=== PATIENT | female | born 1940 | race Caucasian/White ===

== ENCOUNTER 2019-07-03 09:53 | Inpatient (IN) | payer OTHER ==
[~2019-07-03] VITALS: Ht 165.1 cm; Wt 72.6 kg
[2019-07-03 10:05] VITALS: Ht 165.1 cm; Wt 72.6 kg
--- NOTE | 2019-07-03 10:45 | NUR ---
PT PRESENTS TO ED AAOX4 [place] SPEAKING C/O DIZZINESS, REECE WITH EPIGASTRIC PAIN AND REPORTS 4 EPISODES OF VOMITING AT HOME THIS AM. PT HAS HX OF VERTIGO, AND HTN WHOM SHE DOESN'T MONITOR OFTEN. PT HAS NO NEURO DEFICITS HAS EYES CLOSED DUE TO DIZZINESS. PT REPORTS FEELING SOB HOWEVER NO RESP DISTRESS NOTED. O2 SAT 100% VIA N/C. PT ON FULL CM SINUS RHYTHM DENIES CP, ABD SOFT NON DISTENDED DENIES URINARY SYMPTOMS. SKIN WARM DRY INTACT. PT GOWNED IN POSITION OF COMFORT.
[2019-07-03 10:57] LABS: BASOPHIL % 0.8 % (0-2); PLATELET COUNT 290 x10^3mcL (130-400); RED CELL DISTRIBUTION WIDTH 12.7 % (11.5-14.5)
--- NOTE | 2019-07-03 11:00 | NUR ---
PT TO CT VIA [facility]
[2019-07-03 11:18] LABS: CALCIUM 9.7 mg/dL (8.5-10.1); CARBON DIOXIDE 27.5 mmol/L (21-32); CHLORIDE SERUM 95 mmol/L (98-107); CREATININE SERUM 0.9 mg/dL (0.6-1.0); GLUCOSE SERUM 120 mg/dL (74-106); POTASSIUM SERUM 3.6 mmol/L (3.5-5.1); SODIUM SERUM 134 mmol/L (136-145)
[2019-07-03 11:22] LABS: ALBUMIN 3.8 g/dL (3.4-5.0); ALKALINE PHOSPHATASE 70 U/L (46-116); ALT/SGPT 25 U/L (14-59); AST/SGOT 19 U/L (15-37); BILIRUBIN TOTAL 0.8 mg/dL (0.20-1.00); CHOLESTEROL 164 mg/dL (<200); CHOLESTEROL/HDL RATIO 3.2; HDL CHOLESTEROL 51 mg/dL (40-60); LIPASE 182 IU/L (73-393); TOTAL PROTEIN, SERUM 8.2 g/dL (6.4-8.2); TRIGLYCERIDES 112 mg/dL (<150)
[2019-07-03 11:24] LABS: T3 TOTAL 1.12 ng/mL
--- NOTE | 2019-07-03 11:25 | NUR ---
PT WITH URGE TO VOID BED PAIN APPLIED UNDER PTS BUTTOCKS. PTS DAUGHTER AT BEDSIDE
--- NOTE | 2019-07-03 11:28 | NUR ---
PT MEDICATED PER MD ORDERS SEE EMAR.
--- NOTE | 2019-07-03 11:31 | NUR ---
URINE COLLECTED AND DIPPED.
--- NOTE | 2019-07-03 13:14 | NUR ---
PT MEDICATED PER MD ORDERS SEE EMAR. PT RESTING COMFORTABLY DAUGHTER AT BEDSIDE WILL CONTINUE TO MONITOR
[2019-07-03 13:46] LABS: FREE T4 1.67 ng/dL (0.76-1.46)
[2019-07-03 13:50] LABS: FREE THYROXINE INDEX 4.7 ug/dL (1.4-4.5); T4(THYROXINE) 13.5 ug/dL (4.7-13.3)
--- NOTE | 2019-07-03 14:30 | NUR ---
PT ROAD TESTED PER MD ORDERS PT UNSTEADY REPORTING INCREASED DIZZINESS DR NICE MADE AWARE
[2019-07-03] MEDS ORDERED: CEVIMELINE HCL30 MG PO (16:28)
[2019-07-03] MEDS ORDERED: ASPIR 8181 MG PO (16:29)
[2019-07-03] MEDS ORDERED: CARVEDILOL25 M1 PO (16:30)
[2019-07-03] MEDS ORDERED: OMEPRAZOLE20 M4 PO (16:31)
[2019-07-03] MEDS ORDERED: LEVOTHYROXIN0.075 M2 PO (16:32)
[2019-07-03] MEDS ORDERED: LIPI20 PO (16:32)
[2019-07-03] MEDS ORDERED: HYZAAR1 TAB PO (16:33)
[2019-07-03] MEDS ORDERED: MECLIZINE HCL12.5 MG PO (16:34)
[2019-07-03] MEDS ORDERED: LORAZEPAM1 MG PO (16:36)
--- NOTE | 2019-07-03 17:09 | NUR ---
REPORT GIVEN TO AMY IN TELE FLOOR WHO WILL RESUME CARE OF PT.
--- NOTE | 2019-07-03 17:20 | NUR ---
RECEIVED PT FROM ED VIA [place], CAME IN DUE TO WEAKNESS, DIZZINESS AND HEADACHE. AAOX4. C/O 8/10 HEADACHE AND MILD DIZZINESS. ABLE TO FOLLOW COMMANDS. NO SOB NOTED. LUNG SOUNDS CTA, O2 SAT=96%, RA. DENIES CHEST PAIN/ PRESSURE, NSR ON THE MONITOR. DENIES ABDOMINAL DISCOMFORT. BOWEL SOUNDS ACTIVE. VOIDS. GENERALIZED WEAKNESS. IV SITE ON THE RAC IS PATENT AND INTACT. SIDE RAILS UPX2. CALL LIGHT ON REACH. DAUGHTER AT BEDSIDE. PRIMARY NURSE AMY AT BEDSIDE FOR CONTINUITY OF CARE
--- NOTE | 2019-07-03 17:30 | NUR ---
PT TRANSPORTED TO TELE FLOOR VIA [place] ON PORTABLE CM NO DISTRESS BY GLENN VAUGHN AND BLAYNE EMT. AMY VAUGHN RESUMED CARE OF PT.
[2019-07-03 17:35] VITALS: BP 180/62
[2019-07-03 18:13] VITALS: BP 155/63
--- NOTE | 2019-07-03 18:28 | NUR ---
PT C/O REECE /, MEDICATED PER EMAR
--- NOTE | 2019-07-03 18:36 | NUR ---
NO ACUTE CHANGES AT THIS TIME, NO ACUTE RESP DISTRESS OR SOB NOTED, US TECH AT BEDSIDE, DAUGHTER AT BEDSIDE. DR. BARAJAS MADE AWARE OF PT HOME MEDICATION FOR ANXIETY. IV TO THE RAC INTACT AND PATENT INFUSING AT 70ML/HR/ TOLERATING WELL. WILL ENDORSE TO INCOMING RN.
[2019-07-03 19:51] VITALS: BP 150/55
--- NOTE | 2019-07-03 20:00 | NUR ---
RECEIVED PT IN BED, RESTING QUIETLY. A/O X4, HEBREW SPEAKING, ABLE TO VERBALIZE NEEDS. DENIES HEADACHE/DIZZINESS. RESP. EVEN AND UNLABORED. ON ROOM AIR, NO ACUTE DISTRESS NOTED. SR ON THE MONITOR, DENIES CP OR ANY DISCOMFORT AT THIS TIME. AFEBRILE AND VITAL SIGNS STABLE. IVF,NS AT 10ML/HR, INTACT AND INFUISNG VIA RAC, SITE CLEAR.ABLE TO MOVE ALL EXTS. ASSISTED WITH HS CARE. CALL LIGHT WITHIN REACH. WILL CONTINUE TO MONITOR.
[2019-07-03 21:09] LABS: microscopic required? NO
[2019-07-03 21:13] LABS: urine erythrocyte NEGATIVE (NEGATIVE)
[2019-07-03 21:22] LABS: AMPHETAMINE QUAL UR NONE DETECTED (See below)
--- NOTE | 2019-07-04 00:25 | NUR ---
NO COMPLAINTS NOTED AT THIS TIME. RESTING QUIETLY IN BED WITH EYES CLOSED, APPEARS ASLEEP, EASILY AROUSABLE.RESP.EVEN AND UNLABORED. NO ACUTE DISTRESS NOTED. CALL LIGHT WITHIN REACH. WILL CONTINUE TO MONITOR.
[2019-07-04 04:59] VITALS: BP 128/52
--- NOTE | 2019-07-04 06:16 | NUR ---
SLEPT WELL. NO COMPLAINTS NOTED. DENIES HEADACHE/DIZZINESS. RESP. EVEN AND UNLABORED. NO ACUTE DISTRESS NOTED. AFEBRILE AND VITAL SIGNS STABLE. DUE MEDS GIVEN ORDERED, BUSTER. WELL. SR ON THE MONITOR, DENIES CP OR PRESSURE. IVF INTACT AND INFUSING WELL, SITE CLEAR. KEPT COMFORTABLE. VOIDING FREELY VIA BEDPAN. CALL LIGHT WITHIN REACH. WILL CONTINUE TO MONITOR.
[2019-07-04 06:43] LABS: BASOPHIL % 0.8 % (0-2); PLATELET COUNT 266 x10^3mcL (130-400); RED CELL DISTRIBUTION WIDTH 13.2 % (11.5-14.5)
[2019-07-04 06:49] LABS: CALCIUM 8.7 mg/dL (8.5-10.1); CARBON DIOXIDE 26.3 mmol/L (21-32); CHLORIDE SERUM 102 mmol/L (98-107); CREATININE SERUM 0.9 mg/dL (0.6-1.0); GLUCOSE SERUM 86 mg/dL (74-106); SODIUM SERUM 140 mmol/L (136-145)
--- NOTE | 2019-07-04 07:00 | NUR ---
RECEIVED REPORT FROM KALYAN RN AT BEDSIDE, PT IN BED IN NO ACUTE DISTRESS
--- NOTE | 2019-07-04 07:30 | NUR ---
PT RESTING IN BED, IN NO ACUTE DISTRESS, VERBAL, ABLE TO MAKE NEEDS KNOWN, CALM AND COOPERATIVE AT THIS TIME, CLEAR LIQUID DIET, PERRLA, NO REDNESS/DRAINAGE, NO FACIAL DROOP/SLURRED SPEECH, RESP EVEN AND NONLABORED, RA, NO SOB/COUGH, LUNG CTA, CHEST RISE SYMMETRICALLY, TELE #1, NSR, HR-81, DENIED CP/PALPITATION, DENIED N/V/D, DENIED REECE/PAIN, ABD ROUND AND NONTENDER TO TOUCH, BS ACTIVE, X 4, EQUAL HAND OXYHYDROGEN WELDER, PALP PULSES, CAP REFILL < 2S, AMBULATORY, CONTINENT, BSC, FALL RISK PROTOCOL, SKIN C/D/W, SEE SKIN ASSESSMENT, IV PATENT AND INFUSING WELL, DRESSING CDI, ALL NEEDS ADDRESSED AT THIS TIME, SAFETY PROTOCOL FOLLOWED, CONTINUE TO MONITOR
[2019-07-04 08:06] VITALS: BP 149/57
--- NOTE | 2019-07-04 08:16 | NUR ---
PT NPO AT THIS TIME D/T POSSIBLE PROCEDURE PER CHARGE NURSE ZEV, PT MADE AWARE, ASSISTED TO BSC, VOID X 1, ASSISTED BACK TO BED, RESTING, IN NO ACUTE DISTRESS, [facility] TO [facility]
--- NOTE | 2019-07-04 08:34 | NUR ---
PT REPROTED REECE, 10/15, LOCAL, MEDICATED PER PRN ORDER VIA EMAR, TOLERATED WELL, PT RESTING IN BED, EDUCATED PT R/T MEDs, ASE AND MONITOR, VERBALLY UNDERSTANDING, CONTINUE TO MONITOR
--- NOTE | 2019-07-04 09:27 | NUR ---
AM MEDs GIVEN PER MD ORDER VIA EMAR, TOLERATED WELL, NO ASE NOTED AT THIS TIME, EDUCATED PT R/T MED, ASE AND MONITOR, UNABLE TO ASSESS UNDERSTANDING AT THIS TIME, WILL CONTINUE TO EDUCATE PT THROUGH OUT SHIFT, SAFETY PROTOCOL FOLLOWED, CONTINUE TO MONITOR
[2019-07-04 13:00] VITALS: BP 130/61
--- NOTE | 2019-07-04 13:50 | NUR ---
PT REPORTED PAIN TO [facility] IV, FLUSHING WELL, PT REQUEST TO HAVE IV AT OTHER LOCATION D/T DISCOMFROT AT [facility] LOCATION, NEW IV STARTED TO (L) WRIST, 22G, PATENT AND FLUSING WELL, HEPLOCKED IV TO RAC, PT RESTING IN BED IN NO ACUTE DISTRESS, ASSISTED TO BSC, VOID X 1, BACK TO BED, TOLERATED LUNCH WELL, DENIED N/V/DIZZINESS, CONTINUE TO MONITOR
--- NOTE | 2019-07-04 15:37 | NUR ---
VOID X 1, BM X 1, ASSISTED BACK TO BED, PT RESTING IN BED IN NO ACUTE DISTRESS
[2019-07-04 17:03] VITALS: BP 143/71
--- NOTE | 2019-07-04 17:58 | NUR ---
PT RESTING IN BED, TOLERATED DINNER WELL, DAUGHTER AT BEDSIDE, REPORTED REECE, 3, MEDICATED PER MD PRN ORDER VIA EMAR, TOLERATED WELL, EDUCATED R/T MED, ASE AND MONITOR, VERBALLY UNDERSTANDING, IV PATENT AND INFUSIGN WELL, DRESSING CDI, ALL NEEDS ADDRESSED AT THIS TIME, SAFETY PROTOCOL FOLLOWED, WILL ENDORSE TO ONCOMING RN
[2019-07-04 19:59] VITALS: BP 144/64
--- NOTE | 2019-07-04 20:02 | NUR ---
PATIENT RECEIVED IN BED AWAKE,ALERT AND ORIENTED X4 DURING BEDSIDE HANDS OFF AND INTRODUCTION, DAUGHTER AT BEDSIDE, HELPING INTERPRET SINCE PATIENT ONLY SPEAKS SYRIAC. PATIENT VERBALIZED STILL EXPERIENCING DIZZINESS OFF AND ON, WAS MEDICATED EARLIER WITH ANTIVERT AND PATIENT STATED HELPING. BREATHING EVEN AND UNLABORED BS CLEAR, FOUND ON ROOM AIR SAT 98%.DENIED CHEST PAINS, HR=58BPM, TELE#1 , RHYTHM REGULAR. IV SITE TO LEFT WRIST PATENT AN INTACT, HEPLOCK TO RAC INTACT TAPE SECURED AND CAP LOCK. PATIENT INFORMED ABPUT SAFETY/FALL PREACUTIONS AND ALSO POC THIS SHIFT. CALL LIGHT PLACED IN REACH . AMBULATORY WITH STEADY GAIT, ADVICED TO CALL NURSE WHEN NEEDS ARISES, NEEDS ANTICIPATED. WILL CONTINUE TO MONITOR.
--- NOTE | 2019-07-04 21:17 | NUR ---
SCHEDULED MEDS ADMINISTERED PATIENT INFORMED OF EACH MEDS ACTIONS AND PURPOSES PRIOR. TOOK PILLS WELL. DR LEON MADE AWAKE ABOUT AN ORDER FOR A SECOND K-RIDER 20 MEQ AND A PO LIQUID 20MEQ. WILL DC IV RIDER BUT ORDERED TO GO AHEAD AND ADMINISTERED IT. ORDER CARRIED OUT.
--- NOTE | 2019-07-05 | NUR ---
ROUNDS MADE PATIENT SLEEPING QUIETLY THIS TIME AWAKEN EASILY , OFFERED NO COMPLAINTS,WAS ASSISTED EARLIER TO THE BATHROOM,VOIDED WITHOUT DIFF. SAFETY/FALL PRECAUTIONS MAINTAINED. DENIED DIZZINESS.
[2019-07-05 05:00] VITALS: BP 146/68
[2019-07-05 06:21] LABS: BASOPHIL % 0.8 % (0-2); PLATELET COUNT 249 x10^3mcL (130-400); RED CELL DISTRIBUTION WIDTH 12.8 % (11.5-14.5)
--- NOTE | 2019-07-05 06:29 | NUR ---
PATIENT HAD A RESTFUL AND COMFORTABLE NIGHT, WAS ASSISTED NUMEROUS TIMES TO THE BATHROOM FOR HER NECESSITIES, VOIDED WITHOUT DIFF. DENIED DIZZINESS DURING THE SHIFT. GAIT WAS STEADY. IV SITE TO LEFT WRIST NO SIGN OF INFILTRATION. SAFETY/FALL PRECAUTIOS OBSERVED AND MAINTAINED. WILL ENDORSE CONTINUITY OF CARE TO INCOMING NURSE.
[2019-07-05 06:32] LABS: CALCIUM 8.9 mg/dL (8.5-10.1); CARBON DIOXIDE 25.1 mmol/L (21-32); CHLORIDE SERUM 105 mmol/L (98-107); CREATININE SERUM 0.9 mg/dL (0.6-1.0); GLUCOSE SERUM 83 mg/dL (74-106); POTASSIUM SERUM 3.3 mmol/L (3.5-5.1); SODIUM SERUM 141 mmol/L (136-145)
--- NOTE | 2019-07-05 07:13 | NUR ---
RECEIVED REPORT FROM OLIVE RN AT BEDSIDE, PT IN BED IN NO ACUTE DISTRESS, IV PATENT AND INFUSING WELL
--- NOTE | 2019-07-05 07:17 | NUR ---
BEDSIDE REPORT/HANDS OFF AND INTRODUCTION PERFORMED WITH INCOMING NURSE THI-RN.
--- NOTE | 2019-07-05 07:45 | NUR ---
PT RESTING IN BED, IN NO ACUTE DISTRESS, VERBAL, ABLE TO MAKE NEEDS KNOWN, CALM AND COOPERATIVE AT THIS TIME, FULL LIQUID DIET, PERRLA, NO REDNESS/DRAINAGE, NO FACIAL DROOP/SLURRED SPEECH, RESP EVEN AND NONLABORED, RA, NO SOB/COUGH, LUNG CTA, CHEST RISE SYMMETRICALLY, TELE #1, NSR, HR-73, DENIED CP/PALPITATION, DENIED N/V/D, DENIED REECE/PAIN, ABD ROUND AND NONTENDER TO TOUCH, BS ACTIVE, X 4, EQUAL HAND TALENT ACQUISITION OPERATIONS MANAGER, PALP PULSES, CAP REFILL < 2S, AMBULATORY, CONTINENT, BSC, FALL RISK PROTOCOL, SKIN C/D/W, SEE SKIN ASSESSMENT, IV PATENT AND INFUSING WELL, DRESSING CDI, ALL NEEDS ADDRESSED AT THIS TIME, SAFETY PROTOCOL FOLLOWED, CONTINUE TO MONITOR
[2019-07-05 08:47] VITALS: BP 152/70
--- NOTE | 2019-07-05 08:53 | NUR ---
AM MEDS GIVEN PER MD ORDER VIA EMAR, TOLERATED WELL, NO ASE NOTED AT THIS TIME, EDUCATEDPT R/T MEDs, ASE AND MONITOR, VERBALLY UNDERSTANDING, ALL NEEDS ADDRESSED AT THIS TIME, IV TO RAC REMOVED PER PT REQUEST D/T DISCOMFORT, SAFETY PROTOCOL FOLLOWED, CONTINUE TO MONITOR
--- NOTE | 2019-07-05 09:41 | NUR ---
PT REPORTED REECE, 3/10, DULL, MEDICATED PT PER PRN ORDER VIA EMAR, TOLERATED WELL, EDUCATED PT R/T MED, ASE AND MONITOR, VERBALLY UNDERSTANDING, PT RESTING IN BED, IN NO ACUTE DISTRESS, CONTINUE TO MONITOR
[2019-07-05 13:34] VITALS: BP 143/55
--- NOTE | 2019-07-05 14:32 | NUR ---
VOID X 1, BM X 1, ASSISTED BACK TO BED, PT RESTING IN BED IN NO ACUTE DISTRESS, FAMILY AT BEDSIDE
[2019-07-05 17:02] VITALS: BP 138/62
--- NOTE | 2019-07-05 17:32 | NUR ---
PT RESTING IN BED, TOLERATED DINNER WELL, DAUGHTER AT BEDSIDE, IV PATENT AND INFUSING WELL, DRESSING CDI, ALL NEEDS ADDRESSED AT THIS TIME, SAFETY PROTOCOL FOLLOWED, WILL ENDORSE TO ONCOMING RN
[2019-07-05 19:58] VITALS: BP 130/54
--- NOTE | 2019-07-05 20:00 | NUR ---
PATIENT RECEIVED IN BED AWAKE,ALERT AND ORIENTED X3, SPEECH CLEAR COMPLAINED OF DULL HEADACHE RATED AT 3/10, DENIED DIZZINESS AT THIS TIME. BREATHING EVEN AND UNLABORED BS CLEAR ALL URIAS, DENIED SOB FOUND ON ROOM AIR SAT 96%. DENIED CHEST PAINS HR=67BPM, RHYTHM REGULAR, TELE#1 NSR. IV SITE TO LT WRIST PATENT AND INTACT NO SIGN OF INFILTRATION NOR REDNESS. PATIENT EDUCATED ABOUT SAFETY /FALL PRECAUTIONS. ALL QUESTIONS AND CONCERNS ADDRESSED. PATIENT INFORMED ABOUT POC THIS SHIFT. WILL CONTINUE TO MONITOR.
[2019-07-05 20:27] VITALS: BP 146/66
--- NOTE | 2019-07-05 21:14 | NUR ---
SCHEDULED MEDS ADMINISTERED, PATIENT INFORMED ABOUT EACH MEDS ACTIONS AND PURPOSE PRIOR. PATIENT TOOK PILLS WELL. KCL LIQUID GIVEN FOR K+ 3.2.
--- NOTE | 2019-07-05 22:03 | NUR ---
DR RINCON WITH NEW ORDER, AWAITING PHARMACY TO VERIFY ORDER.
--- NOTE | 2019-07-05 22:39 | NUR ---
MEDICATED PER 1X ORDER FOR COMPLAINED OF HEADACHE, WILL RE-ASSESS EEFFECTIVENESS.
--- NOTE | 2019-07-05 23:43 | NUR ---
AT 2339 CHECKED PATIENT TO SEE THE EFFECTIVENESS OFPAIN MEDS GIVEN, SLEEPING QUIETLY, AWAKEN WHEN NAME CALLED , STATED PAIN( HEADACHE) IS BETTER. WILL CONTINUE TO MONITOR.
[2019-07-06] VITALS (7 sets, daily range): BP systolic 127–166; BP diastolic 52–71
--- NOTE | 2019-07-06 05:45 | NUR ---
PATIENT HAD A QUIET AND COMFORTABLE NIGHT, WAS ASSISTED OOB TO THE BR AND BSC FOR HER NECESSITIES WITH STEADY GAIT, NO EPISODE OF DIZZINESS DURING THE SHIFT. COMPLAINED OF HEADACHE AND WAS MEDICATED WITH TORADOL AND STATED IT WORKS BETTER THAN TYLENOL. IV SITE NO SIGN OF INFILTRATION. VOIDED WITHOUT DIFF. SAFETY/FALL PRECAUTIONS OBSERVED AND MAINTAINED. WILL ENDORSE CONTINUITY OF CARE TO INCOMING NURSE.
[2019-07-06 06:27] LABS: CALCIUM 8.8 mg/dL (8.5-10.1); CARBON DIOXIDE 28.1 mmol/L (21-32); CHLORIDE SERUM 104 mmol/L (98-107); CREATININE SERUM 1.1 mg/dL (0.6-1.0); GLUCOSE SERUM 84 mg/dL (74-106); POTASSIUM SERUM 3.6 mmol/L (3.5-5.1); SODIUM SERUM 140 mmol/L (136-145)
[2019-07-06 07:08] LABS: BASOPHIL % 0.7 % (0-2); PLATELET COUNT 241 x10^3mcL (130-400); RED CELL DISTRIBUTION WIDTH 13.1 % (11.5-14.5)
--- NOTE | 2019-07-06 07:15 | NUR ---
RECEIVED PT FROM NIGHT NURSE. PT IS SITTING AT THE EDGE OF THE BED. PT LOOKS TO BE IN NO ACUTE DISTRESS AT THIS TIME AND DENIES ANY PAIN OR DIZZINESS. RESPIRATIONS EVEN AND UNLABORED ON ROOM AIR. TELE MONITOR PRESENT. IV SITE PATENT WITH NO SIGNS OF ERYTHEMA OR SWELLING WITH IV FLUIDS INFUSING. BED IN LOWEST POSITION, CALL LIGHT WITHIN REACH. WILL CONTINUE TO MONITOR.
--- NOTE | 2019-07-06 07:30 | NUR ---
BEDSIDE HANDS OFF/REPORT AND INTRODUCTION PERFORMED WITH INCOMING NURSE NORMA-RN.
[2019-07-06] MEDS ORDERED: DRAMAMINE LESS25 MG PO (11:00)
--- NOTE | 2019-07-06 13:20 | NUR ---
DR. MCLEANED AWARE OF PT'S HIGH BLOOD PRESSURE
--- NOTE | 2019-07-06 15:20 | NUR ---
RECHECK THE B/P- AFTER HYDRALAZINE 10MG PO. CALLED TO AND MADE AWARE AND STATED TO GIVE HYDRALAZINE 10MG IV. CALLED TO PHARMACIST AND SPOKE W/ TATIANA AND VERIFY IF OK TO GIVE HYDRALAZINE IV AFTER 10MG PO WAS GIVEN AND HE STATED THAT IT'S OK.
--- NOTE | 2019-07-06 15:52 | NUR ---
GAVE PT HYDRALAZINE IVP ORDERED. FAMILY MEMBER AT BEDSIDE. WILL REASSESS BLOOD PRESSURE IN 30 MINUTES
--- NOTE | 2019-07-06 16:36 | NUR ---
RECHECKED PT'S BLOOD PRESSURE 30 MINUTES AFTER IVP HYDRALAZINE AND IS 152/79, WILL NOTIFY DR. BARAJAS OF BLOOD PRESSURE READING AND SEE IF SAFE TO SEND PT HOME. FAMILY MEMBER AT PT'S BEDSIDE. WILL CONTINUE TO MONITOR. DR. KARL PENALOZA.
--- NOTE | 2019-07-06 16:40 | NUR ---
NOTIFIED DR. BARAJAS OF PT'S BLOOD PRESSURE. RECOMMENDED TO RECHECK BLOOD PRESSURE IN ABOUT 30 MINUTES AND IF SYSTOLIC IS BELOW 150 THEN THE PT CAN BE DISCHARGED. WILL RECHECK BLOOD PRESSURE ORDERED
--- NOTE | 2019-07-06 18:58 | NUR ---
PT IS LAYING DOWN IN BED WITH HOB UP RESTING. PT LOOKS TO BE IN NO ACUTE DISTRESS AT THIS TIME. RESPIRATIONS EVEN AND UNLABORED ON ROOM AIR. IV SITE PATENT WITH NO SIGNS OF ERYTHEMA OR SWELLING. FAMILY MEMBER AT BEDSIDE IN CASE PT BLOOD PRESSURE IS BELOW 150 AND PER . WILL BE ABLE TO GO HOME, IF NOT PT WILL HAVE TO BE DISCHARGED TOMORROW, PT AND FAMILY MEMBER AGREEABLE. CALL LIGHT WITHIN REACH. WILL ENDORSE TO ONCOMNING SHIFT.
--- NOTE | 2019-07-06 20:00 | NUR ---
PT A/A/O X4, DAUGHTER AT BEDSIDE. PT DENIES DIZZINESS AND HEADACHE THUS FAR. BREATH SOUNDS CLEAR. BREATHING EVEN AND UNLABORED ON ROOM AIR. DENIES CHEST PAIN AND PRESSURE. BOWEL SOUNDS ACTIVE. NO C/O N/V AND ABD PAIN. BLOOD PRESSURE 164/65, HR 67 AFTER 3 ATTEMPTS. IV INTACT ON THE LEFT WRIST. MADE PT COMFORTABLE. PLACED CALL LIGHT WITH IN REACH. WILL CONTINUE TO MONITOR.
--- NOTE | 2019-07-07 00:57 | NUR ---
PT RESTING WITH EYES CLOSED. NO DISTRESS AND DISCOMFORT NOTED. WILL CONTINUE TO MONITOR.
--- NOTE | 2019-07-07 03:24 | NUR ---
PT C/O HEADACHE AND MILD DIZZINESS. GAVE PT TYLENOL PO. PT TOLERATED IT WELL. WILL CONTINUE TO MONITOR.
[2019-07-07 05:22] VITALS: BP 115/59
--- NOTE | 2019-07-07 06:34 | NUR ---
PT QUIET AND RESTING. DENIES HEADACHE THUS FAR. BLOOD PRESSURE 115/59 HR 62. MADE PT COMFORTABLE. WILL ENDORSE TO THE AM NURSE ACCORDINGLY.
--- NOTE | 2019-07-07 07:10 | NUR ---
RECEIVED PT FROM NIGHT NURSE. PT IS WALKING TO THE RESTROOM WITH SWEEP PRESS OPERATOR AND DENIES ANY DIZZINESS PT LOOKS TO BE IN NO ACUTE DISTRESS AT THIS TIME AND DENIES ANY PAIN. RESPIRATIONS EVEN AND UNLABORED ON ROOM AIR. IV SITE PATENT WITH NO SIGNS OF ERYTHEMA OR SWELLING. TELE MONITOR PRESENT. CALL LIGHT WITHIN REACH. BED IN LOWEST POSITION, WILL CONTINUE TO MONITOR.
[2019-07-07 07:58] VITALS: BP 128/67
--- NOTE | 2019-07-07 11:00 | NUR ---
PT COMPLAINING OF A HEADACHE AND IS REQUESTING PAIN MEDICATION. WILL MEDICATE ACCORDING TO EMAR.
[2019-07-07 11:14] VITALS: BP 116/61
--- NOTE | 2019-07-07 11:15 | NUR ---
PT IS LAYING DOWN IN BED WITH HOB UP. PT STATES THAT SHE FEELS A LITTLE DIZZY AND WOULD LIKE HER BLOOD PRESSURE CHECKED. PROVIDED PT WITH ANTIVERTIGO MEDICATION AND PT BLOOD PRESSURE IS 116/61. PT WAS RELIEVED THAT HER BLOOD PRESSURE WAS LOW AND SAID THAT SHE FEELS BETTER AND LESS DIZZY KNOWING THAT HER BLOOD PRESSURE IS NOT HIGH. FAMILY MEMBER AT BEDSIDE. WILL CONTINUE TO MONITOR.
--- NOTE | 2019-07-07 12:30 | NUR ---
PT IS SITTING AT EDGE OF THE BED EATING LUNCH. PT STATED THAT HER DAUGHTER WILL BE TAKING HER HOME. INFORMED PT TO PRESS CALL LIGHT WHEN DAUGHTER ARRIVES.
--- NOTE | 2019-07-07 14:15 | NUR ---
PT AWAKE, ALERT AND ORIENTED AT TIME OF DISCHARGE. PT LOOKS TO BE IN NO ACUTE DISTRESS AND DENIES ANY PAIN AT TIME OF DISCHARGE. PT DISCHARGED HOME AND WENT TO LOBBY VIA WHEELCHAIR ACCOMPANIED BY FAMILY MEMBER AND NURSE WITH BELONGINGS IN HAND. PROVIDED PT WITH EDCUATION AND PRESCRIPTIONS, PT AND FAMILY MEMBER VERBALIZED UNDERSTANDING OF EDUCATION. INFORMED PT AND FAMILY MEMBER OF FOLLOW UP APPOINTMENT AND THE IMPORTANCE OF GOING TO THE FOLLOW UP APPOINTMENT. PT AND FAMILY MEMBER VERBALIZED UNDERSTANDING. IV REMOVED AND CATHETER FULLY INTACT. ALL QUESTIONS AND CONCERNS ADDRESSED.
== END 2019-07-07 14:10 | disposition home or self-care (01) | DRG 149 ==
LOC: ED 09:53 → DU 15:29
PROVIDERS: Specialist; ADMIT Internal Medicine
DX: H81.10 Benign paroxysmal vertigo, unspecified ear (principal); I50.42 Chronic combined systolic (congestive) and diastolic (congestive) heart failure; I11.0 Hypertensive heart disease with heart failure; E03.9 Hypothyroidism, unspecified; M06.9 Rheumatoid arthritis, unspecified; Z68.26 Body mass index [BMI] 26.0-26.9, adult; Z79.82 Long term (current) use of aspirin
CPT/HCPCS: 83880; 84439; 90732; 97116-GP; 97530-GP; C9113; G0378; J0360; J1200; J1885; J2405; J3480; J7030; J8597; Q0092